=== PATIENT | female | born 1975 | race Two or more races ===

== ENCOUNTER → 2017-11-15 | Outpatient (CLI) | payer OTHER ==
--- NOTE | 2017-11-15 17:21 | WOMENS IMAGING REPORT ---
EXAM DESCRIPTION: BILAT SCREENING MAMMO W/CAD COMPLETED DATE/TIME: 11/15/2017 4:09 pm REASON FOR STUDY: ROUTINE SCREENING;Z12.31 Z12.31 ENCNTR SCREEN MAMMOGRAM FOR MALIGNANT NEOPLASM OF MISBAH COMPARISON: Multiple since 2009 TECHNIQUE: Standard craniocaudal and mediolateral oblique views of each breast recorded using digita l acquisition. Additional "push-back" craniocaudal and mediolateral oblique images acquired. LIMITATIONS: None. FINDINGS: IMPLANTS: Bilateral subpectoral implants. RIGHT BREAST MASSES: No suspicious masses. CALCIFICATIONS: In the right breast, retroareolar region, 3 cm from the nipple there are calcificatio ns which require further investigation with compression magnification views in the CC and MLO orienta tions, implant displaced right breast 90 mediolateral view. ARCHITECTURAL DISTORTION: None. DEVELOPING DENSITY: None. ASYMMETRY: None noted. OTHER: No other significant findings. LEFT BREAST MASSES: No suspicious masses. CALCIFICATIONS: No new or suspicious calcifications. ARCHITECTURAL DISTORTION: None. DEVELOPING DENSITY: None. ASYMMETRY: None noted. OTHER: No other significant findings. Read with the assistance of CAD. .[facility] - R2 Cenova Version 1.3 .[facility] Imaging - R2 Cenova Version 1.3 .[facility] Imaging - R2 Cenova Version 2.4 .[facility] - R2 Cenova Version 2.4 .[facility] - R2 Lamp Replacer Version 9.2 IMPRESSION: Calcifications right breast which require further evaluation with diagnostic compression magnification mammograms No mammographic evidence for malignancy left breast BREAST DENSITY: b. There are scattered areas of fibroglandular density. BIRAD: 0 Incomplete: Needs Additional Imaging Evaluation and/or prior Mammograms for Comparison. RECOMMENDATION: RECOMMENDED FOLLOW-UP: Compression magnification views right breast The patient will be contacted for additional imaging. COMMENT: The patient has been notified of the results by letter per SA requirements. Additional no tification policies are in place for contacting patient with suspicious or incomplete findings. Quality ID #[id number]: The [employer] recommends an annual screening mammogram for women aged 40 years or over. This facility utilizes a reminder system to ensure that all patients receive reminder letters, and/or direct phone calls for appointments. This includes reminders for routine scr eening mammograms, diagnostic mammograms, or other Breast Imaging Interventions when appropriate. Th is patient will be placed in the appropriate reminder system. The [employer] (ACR) has developed recommendations for screening MRI of the breast s in certain patient populations, to be used in conjunction with mammography. Breast MRI surveillanc e may be appropriate for women with more than 20% lifetime risk of developing breast cancer as deter mined by genetic testing, significant family history of the disease, or history of mantle radiation f or Hodgkins Disease. ACR Practice Guidelines 2008. TECHNICAL DOCUMENTATION: FINDING NUMBER: (1) ASSESSMENT: (1) JOB ID: [id number] [employer]- All Rights Reserved
== END ==
LOC: WI 15:07
PROVIDERS: ATTEND Family Medicine
DX: Z12.31 Encounter for screening mammogram for malignant neoplasm of breast (principal); R92.0 Mammographic microcalcification found on diagnostic imaging of breast; Z98.82 Breast implant status
CPT/HCPCS: 77067

== ENCOUNTER → 2017-11-22 | Outpatient (CLI) | payer OTHER ==
--- NOTE | 2017-11-23 08:41 | WOMENS IMAGING REPORT ---
EXAM DESCRIPTION: RIGHT DIAGNOSTIC MAMMO W/CAD COMPLETED DATE/TIME: 11/22/2017 12:53 pm REASON FOR STUDY: CALCIFICATIONS R92.0 R92.2 INCONCLUSIVE MAMMOGRAM COMPARISON: Multiple since 2009 TECHNIQUE: Implant displaced right breast 90 mediolateral and craniocaudad views, implant displaced compression magnification views of the right breast LIMITATIONS: None. FINDINGS: BREAST: Right MASSES: No suspicious masses. CALCIFICATIONS: In the right breast medially retroareolar region about 2.5 cm from the nipple, a grou p of calcifications is present which is variable in size shape and density. These are indeterminate for malignancy. Stereotactic biopsy is recommended for followup. ARCHITECTURAL DISTORTION: None. DEVELOPING DENSITY: None. ASYMMETRY: None noted. OTHER: No other significant findings. Read with the assistance of CAD. .[facility] - R2 Cenova Version 1.3 .[facility] Imaging - R2 Cenova Version 1.3 .[facility] Imaging - R2 Cenova Version 2.4 .[facility] - R2 Cenova Version 2.4 .[facility] - R2 [employer] Version 9.2 IMPRESSION: Right breast microcalcifications, indeterminate for malignancy. Stereotactic biopsy is recommended, with post biopsy clip placement and follow-up immediate two-view mammogram BREAST DENSITY: b. There are scattered areas of fibroglandular density. BIRAD: 4 Suspicious. Biopsy should be considered. RECOMMENDATION: RECOMMENDED FOLLOW UP: Right breast stereotactic biopsy SPECIFIC INTERVENTION/IMAGING/CONSULTATION RECOMMENDED:Right breast stereotactic biopsy, post biopsy clip placement and follow-up two-view mammogram COMMUNICATION:These findings were discussed with the patient at the time of service, she agrees to st ereotactic biopsy. Results were also called to Dr. Liao, 1400 hours, 11/22/2017 COMMENT: The patient has been notified of the results by letter per SA requirements. Additional no tification policies are in place for contacting patient with suspicious or incomplete findings. Quality ID #[id number]: The [employer] recommends an annual screening mammogram for women aged 40 years or over. This facility utilizes a reminder system to ensure that all patients receive reminder letters, and/or direct phone calls for appointments. This includes reminders for routine scr eening mammograms, diagnostic mammograms, or other Breast Imaging Interventions when appropriate. Th is patient will be placed in the appropriate reminder system. The [employer] (ACR) has developed recommendations for screening MRI of the breast s in certain patient populations, to be used in conjunction with mammography. Breast MRI surveillanc e may be appropriate for women with more than 20% lifetime risk of developing breast cancer as deter mined by genetic testing, significant family history of the disease, or history of mantle radiation f or Hodgkins Disease. ACR Practice Guidelines 2008. TECHNICAL DOCUMENTATION: FINDING NUMBER: (1) ASSESSMENT: (1) JOB ID: [id number] [employer]- All Rights Reserved
== END ==
LOC: WI 11:58
PROVIDERS: ATTEND Family Medicine
DX: R92.0 Mammographic microcalcification found on diagnostic imaging of breast (principal)

== ENCOUNTER → 2017-11-29 | Day surgery (SDC) | payer OTHER ==
[~2017-11-29] MED LIST: LIDOCAINE 1%/EPINEPHRINE INJ 20 ML VIAL ONE; LIDOCAINE 2% INJ (20 MG/ML) 20 ML MDV ONE
--- NOTE | 2017-12-01 17:01 | WOMENS IMAGING REPORT ---
EXAM DESCRIPTION: STEREO BREAST BX; RIGHT DIG DX MAMMO NO CHG; BREAST SPECIMEN COMPLETED DATE/TIME: 11/29/2017 11:24 am; 11/29/2017 11:25 am; 11/30/2017 9:20 am REASON FOR STUDY: R92.1 MAMMOGRAPHIC CALCIFCN FOUND ON DIAGNOSTIC IMAGING OF BREAST; POST RT BREAST STEREO; POST STEREO RT R92.1 MAMMOGRAPHIC CALCIFCN FOUND ON DIAGNOSTIC IMAGING OF B COMPARISON: None. TECHNIQUE: Vacuum-assisted stereotactic-guided biopsy of the lesion in the RIGHT breast. Serial prog ress stereotactic and single digital images acquired. PROCEDURE: The procedure was discussed with the patient, including possible complications such as bleeding, infection, nondiagnostic sample or possible findings such as atypical ductal hyperplasia wh ich would require additional surgery. Possible clip placement was explained. The patient agreed t o the procedure. The patient was placed prone on the stereotactic table. The lesion in the breast was localized ster eotactically. The skin of the breast was prepped in sterile fashion. Superficial and deep local an esthesia was provided. A small incision was made in the skin and the biopsy probe was advanced to t he target. Using the vacuum-assisted core biopsy device, multiple core specimens were obtained. Continuous low dose infusion of local anesthesia was used during the procedure. Patient developed a small hematom a during the procedure. This obscured visualization of the breast parenchymal calcifications. A specimen radiograph was obtained. The radiograph demonstrated possible calcifications in the biops y tissue. Using kyhvgujx-ak-edtjfjll technique a ribbon clip was deployed at the biopsy site. Mammographic image confirmed presence of the clip. The probe was then removed and hemostasis obtained with manua l compression. A compression bandage was applied. Postoperative instructions were explained to th e patient. POST-PROCEDURE TWO VIEW DIGITAL MAMMOGRAM: An additional two view mammogram was recorded in the [facility] mammographic suite. Marker clip is present at the biopsy site. LIMITATIONS: None. FINDINGS: PATHOLOGY: Benign breast tissue. Hematoma. No discernible calcifications. CONCORDANT: No. POST PROCEDURE MAMMOGRAMS FOR MARKER PLACEMENT: Yes IMPRESSION: UNSUCCESSFUL STEREOTACTIC-GUIDED BIOPSY OF THE LESION IN THE RIGHT BREAST. BIOPSY RESU LTS ARE DISCORDANT WITH IMAGING FINDINGS. Calcifications of concern were not identified in the specim en. These findings were discussed with the patient, 1700 hours 11/30/2017. She understands that we wi ll need to rebiopsy this lesion in 6 to 8 weeks. FOLLOW-UP: Rebiopsy in 6 to 8 weeks right breast for calcifications NOTIFICATION: Pathology results, need for rebiopsy was discussed with the patient, she understands th at we will need to rebiopsy 6 to 8 weeks. COMMENT: Patient medication list reviewed: Yes- Quality ID# [id number]:Eligible professional attests to doc umenting in the medical record they obtained, updated, or reviewed the patient's current medications. TECHNICAL DOCUMENTATION: JOB ID: [id number] [employer]- All Rights Reserved
--- NOTE | 2017-12-01 17:01 | WOMENS IMAGING REPORT ---
EXAM DESCRIPTION: STEREO BREAST BX; RIGHT DIG DX MAMMO NO CHG; BREAST SPECIMEN COMPLETED DATE/TIME: 11/29/2017 11:24 am; 11/29/2017 11:25 am; 11/30/2017 9:20 am REASON FOR STUDY: R92.1 MAMMOGRAPHIC CALCIFCN FOUND ON DIAGNOSTIC IMAGING OF BREAST; POST RT BREAST STEREO; POST STEREO RT R92.1 MAMMOGRAPHIC CALCIFCN FOUND ON DIAGNOSTIC IMAGING OF B COMPARISON: None. TECHNIQUE: Vacuum-assisted stereotactic-guided biopsy of the lesion in the RIGHT breast. Serial prog ress stereotactic and single digital images acquired. PROCEDURE: The procedure was discussed with the patient, including possible complications such as bleeding, infection, nondiagnostic sample or possible findings such as atypical ductal hyperplasia wh ich would require additional surgery. Possible clip placement was explained. The patient agreed t o the procedure. The patient was placed prone on the stereotactic table. The lesion in the breast was localized ster eotactically. The skin of the breast was prepped in sterile fashion. Superficial and deep local an esthesia was provided. A small incision was made in the skin and the biopsy probe was advanced to t he target. Using the vacuum-assisted core biopsy device, multiple core specimens were obtained. Continuous low dose infusion of local anesthesia was used during the procedure. Patient developed a small hematom a during the procedure. This obscured visualization of the breast parenchymal calcifications. A specimen radiograph was obtained. The radiograph demonstrated possible calcifications in the biops y tissue. Using swerkpzx-tl-mxfampha technique a ribbon clip was deployed at the biopsy site. Mammographic image confirmed presence of the clip. The probe was then removed and hemostasis obtained with manua l compression. A compression bandage was applied. Postoperative instructions were explained to th e patient. POST-PROCEDURE TWO VIEW DIGITAL MAMMOGRAM: An additional two view mammogram was recorded in the [facility] mammographic suite. Marker clip is present at the biopsy site. LIMITATIONS: None. FINDINGS: PATHOLOGY: Benign breast tissue. Hematoma. No discernible calcifications. CONCORDANT: No. POST PROCEDURE MAMMOGRAMS FOR MARKER PLACEMENT: Yes IMPRESSION: UNSUCCESSFUL STEREOTACTIC-GUIDED BIOPSY OF THE LESION IN THE RIGHT BREAST. BIOPSY RESU LTS ARE DISCORDANT WITH IMAGING FINDINGS. Calcifications of concern were not identified in the specim en. These findings were discussed with the patient, 1700 hours 11/30/2017. She understands that we wi ll need to rebiopsy this lesion in 6 to 8 weeks. FOLLOW-UP: Rebiopsy in 6 to 8 weeks right breast for calcifications NOTIFICATION: Pathology results, need for rebiopsy was discussed with the patient, she understands th at we will need to rebiopsy 6 to 8 weeks. COMMENT: Patient medication list reviewed: Yes- Quality ID# [id number]:Eligible professional attests to doc umenting in the medical record they obtained, updated, or reviewed the patient's current medications. TECHNICAL DOCUMENTATION: JOB ID: [id number] [email or web address]- All Rights Reserved
== END ==
LOC: RAD 08:22
PROVIDERS: ATTEND Family Medicine
PROC: 0HBT3ZX Excision of Right Breast, Percutaneous Approach, Diagnostic (ICD-10-PCS; principal; 2017-11-29)
DX: N61.1 Abscess of the breast and nipple (principal)
CPT/HCPCS: 88305 ×2; 88342; 19081; J3490; 76098

== ENCOUNTER → 2017-12-01 | Outpatient (CLI) | payer OTHER | LOC: LAB 15:56 | PROVIDERS: ATTEND Nuclear Medicine | DX: N61.1 Abscess of the breast and nipple (principal) | CPT/HCPCS: 87070; 87075; 87205 ==

== ENCOUNTER → 2017-12-01 | Day surgery (SDC) | payer OTHER ==
--- NOTE | 2017-12-01 16:25 | RADIOLOGY REPORT (SQ) ---
EXAM DESCRIPTION: U/S FINE NEEDLE ASPIRATION COMPLETED DATE/TIME: 12/01/2017 3:50 pm REASON FOR STUDY: RT BREAST ABSCESS hematoma COMPARISON: 11/29/2017 stereotactic biopsy right breast LIMITATIONS: none PROCEDURE: Patient presents today with right breast superficial skin erythema around the percutaneou s access site for stereotactic biopsy. Area of erythema measures about 10 cm in diameter. Patient h as no fever, but did have some night sweats last night. Clinical concern for hematoma with early inf ection. Right breast hematoma aspiration under ultrasound guidance was discussed with the patient, she agreed to the procedure. The area of concern in the right breast was localized with ultrasound. A hypoechoic hematoma measuri ng about 3 x 1 cm was identified in the medial right breast, from about the 0300 hours position. Using appropriate sterile technique and lidocaine as local anesthesia, the targeted hematoma was aspi rated using direct ultrasound visualization. Approximately 15 ml of bloody fluid was aspirated. The aspirated fluid was sent to the lab for Gram stain culture and sensitivity. After the initial aspiration, the cavity was irrigated with sterile saline, and another 5 mL of blood clot was aspirated. The patient tolerated the procedure without immediate complications. Patient was placed on Bactrim DS 1 tablet p.o. b.i.d. for 10 days. She will be re- evaluated tomorro w morning. IMPRESSION: SUCCESSFUL HEMATOMA ASPIRATION IN THE RIGHT BREAST. ASPIRATED FLUID SENT FOR GRAM STAIN CULTURE AND SENSITIVITY. SHE WILL BE RE-EVALUATED CLINICALLY TOMORROW MORNING. PATIENT WAS PLACED ON ORAL ANTIBIOTICS ABOVE. COMMENT: Patient medication list reviewed:Yes- Quality ID# [id number]:Eligible professional attests to docu menting in the medical record they obtained, updated, or reviewed the patient's current medications. PATIENT IS ALLERGIC TO NEOMYCIN TECHNICAL DOCUMENTATION: JOB ID: [id number] [employer] [facility]- All Rights Reserved
== END ==
LOC: RAD 14:41
PROVIDERS: ATTEND Nuclear Medicine
DX: N61.1 Abscess of the breast and nipple (principal)
CPT/HCPCS: 10022

== ENCOUNTER → 2018-02-07 | Day surgery (SDC) | payer OTHER ==
[~2018-02-07] MED LIST changes: -LIDOCAINE 2% INJ (20 MG/ML) 20 ML MDV ONE
--- NOTE | 2018-02-14 16:44 | RADIOLOGY REPORT (SQ) ---
EXAM DESCRIPTION: STEREO BREAST BX; BREAST SPECIMEN; RIGHT DIG DX MAMMO NO CHG COMPLETED DATE/TIME: 02/07/2018 9:39 am; 02/08/2018 9:43 am; 02/07/2018 9:15 am REASON FOR STUDY: MICROCALCS (R92.1); RT BREAST; RT BREAST CLIP PLACEMENT R92.0 MAMMOGRAPHIC MICROC ALCIFICATION FOUND ON DX IMAGING OF COMPARISON: Multiple previous mammograms from 2018 TECHNIQUE: Vacuum-assisted stereotactic-guided biopsy of the lesion in the right breast. Serial prog ress stereotactic and single digital images acquired. PROCEDURE: The procedure was discussed with the patient, including possible complications such as bleeding, infection, nondiagnostic sample or possible findings such as atypical ductal hyperplasia wh ich would require additional surgery. Possible clip placement was explained. The patient agreed t o the procedure. The patient was placed prone on the stereotactic table. The lesion in the breast was localized ster eotactically. The skin of the breast was prepped in sterile fashion. Superficial and deep local an esthesia was provided. A small incision was made in the skin and the biopsy probe was advanced to t he target. Using the vacuum-assisted core biopsy device, multiple core specimens were obtained. Continuous low dose infusion of local anesthesia was used during the procedure. A specimen radiograph was obtained. The radiograph demonstrated calcifications of concern in the bio psy tissue. Using ismgxefz-dm-yotfnacn technique a pellet clip was deployed at the biopsy site. Mammographic image confirmed presence of the clip. The probe was then removed and hemostasis obtained with manua l compression. A compression bandage was applied. Postoperative instructions were explained to th e patient. POST-PROCEDURE TWO VIEW DIGITAL MAMMOGRAM: An additional two view mammogram was recorded in the [facility] mammographic suite. Previous Marker clip is present at the biopsy site. Pellet marker was like ly expressed from the breast during postprocedure compression LIMITATIONS: None. FINDINGS: PATHOLOGY: Benign breast parenchyma with microcalcifications, foreign body reaction compat ible with previous biopsy site CONCORDANT: Yes. POST PROCEDURE MAMMOGRAMS FOR MARKER PLACEMENT: Yes IMPRESSION: SUCCESSFUL STEREOTACTIC-GUIDED BIOPSY OF THE LESION IN THE RIGHT BREAST. BIOPSY RESULT S ARE CONCORDANT WITH IMAGING FINDINGS. Benign calcifications are noted. BI-RADS 2 benign findings FOLLOW-UP: Patient should resume bilateral screening in October 2018 NOTIFICATION: These results were discussed with the patient, 02/09/2018, 1500 hours. She understands that this is a benign diagnosis and that she can return to bilateral screening in October 2018 COMMENT: Patient medication list reviewed: Yes- Quality ID# [id number]:Eligible professional attests to doc umenting in the medical record they obtained, updated, or reviewed the patient's current medications. TECHNICAL DOCUMENTATION: JOB ID: [id number] [employer]- All Rights Reserved Reading location - IP/workstation name: [email or web address]
== END ==
LOC: RAD 07:39
PROVIDERS: ATTEND Family Medicine
PROC: 0HBT3ZX Excision of Right Breast, Percutaneous Approach, Diagnostic (ICD-10-PCS; principal; 2018-02-07)
DX: N60.91 Unspecified benign mammary dysplasia of right breast (principal); N60.31 Fibrosclerosis of right breast; N60.41 Mammary duct ectasia of right breast; R92.0 Mammographic microcalcification found on diagnostic imaging of breast; R92.1 Mammographic calcification found on diagnostic imaging of breast
CPT/HCPCS: 88342 ×2; 88305 ×2; 19081; J3490

== ENCOUNTER → 2019-01-26 | Outpatient (CLI) | payer OTHER ==
--- NOTE | 2019-01-26 17:02 | WOMENS IMAGING REPORT ---
EXAM DESCRIPTION: BILAT SCREENING MAMMO W/CAD COMPLETED DATE/TIME: 01/26/2019 2:49 pm REASON FOR STUDY: Z12.31 ENCOUNTER FOR SCREENING MAMMOGRAM FOR MALIGNANT NEOPLASM OF BREAST Z12.31 ENCNTR SCREEN MAMMOGRAM FOR MALIGNANT NEOPLASM OF MISBAH COMPARISON: Multiple since 2009 TECHNIQUE: Standard craniocaudal and mediolateral oblique views of each breast recorded using digita l acquisition. Additional "push-back" craniocaudal and mediolateral oblique images acquired. LIMITATIONS: None. FINDINGS: IMPLANTS: Bilateral subpectoral implants. Findings present which are benign by mammographic criteria. No suspicious masses, calcifications or architectural distortion. Read with the assistance of CAD. .[facility] - R2 Cenova Version 1.3 .[facility] Imaging - R2 Cenova Version 2.1 .[facility] Imaging - R2 Cenova Version 2.4 .[facility] - R2 Cenova Version 2.4 .[facility] - R2 [employer]er Version 9.2 Benign mammographic findings may include one or more of the following: Smooth masses, popcorn/rim/co arse calcifications, asymmetries, post-procedure changes, and lesions with long-standing stability. IMPRESSION: BENIGN MAMMOGRAPHIC FINDINGS. BIRADS 2 BREAST DENSITY: b. There are scattered areas of fibroglandular density. BIRAD: 2 BENIGN FINDING(S) RECOMMENDATION: ROUTINE SCREENING COMMENT: The patient has been notified of the results by letter per SA requirements. Additional no tification policies are in place for contacting patient with suspicious or incomplete findings. Quality ID #225: The [employer] recommends an annual screening mammogram for women aged 40 years or over. This facility utilizes a reminder system to ensure that all patients receive reminder letters, and/or direct phone calls for appointments. This includes reminders for routine scr eening mammograms, diagnostic mammograms, or other Breast Imaging Interventions when appropriate. Th is patient will be placed in the appropriate reminder system. The [employer] (ACR) has developed recommendations for screening MRI of the breast s in certain patient populations, to be used in conjunction with mammography. Breast MRI surveillanc e may be appropriate for women with more than 20% lifetime risk of developing breast cancer as deter mined by genetic testing, significant family history of the disease, or history of mantle radiation f or Hodgkins Disease. ACR Practice Guidelines 2008. TECHNICAL DOCUMENTATION: FINDING NUMBER: (1) ASSESSMENT: (1) JOB ID: [id number] [employer]- All Rights Reserved Reading location - IP/workstation name: [email or web address]
== END ==
LOC: WI 14:27
PROVIDERS: ATTEND Family Medicine
DX: Z12.31 Encounter for screening mammogram for malignant neoplasm of breast (principal)
CPT/HCPCS: 77067

== ENCOUNTER → 2020-04-02 | Outpatient (CLI) | payer OTHER ==
--- NOTE | 2020-04-02 13:15 | WOMENS IMAGING REPORT ---
EXAM DESCRIPTION: BILAT SCREENING MAMMO W/CAD IMAGES COMPLETED DATE/TIME: 04/02/2020 9:24 am REASON FOR STUDY: Z12.31 SCREENING MAMMO Z12.31 ENCNTR SCREEN MAMMOGRAM FOR MALIGNANT NEOPLASM OF B RE COMPARISON: Multiple since 2009 EXAM PARAMETERS: Standard craniocaudal and mediolateral oblique views of each breast recorded using digital acquisition. Additional "push-back" craniocaudal and mediolateral oblique images acquired. Read with the assistance of CAD. .[facility] - [employer] Strategist Version 9.2 LIMITATIONS: None. FINDINGS: IMPLANTS: Bilateral subpectoral implants. Findings present which are benign by mammographic criteria. No suspicious masses, calcifications or architectural distortion. Old biopsy clip right breast retroareolar region Benign mammographic findings may include one or more of the following: Smooth masses, popcorn/rim/co arse calcifications, asymmetries, post-procedure changes, and lesions with long-standing stability. IMPRESSION: BENIGN MAMMOGRAPHIC FINDINGS. BIRADS 2 BREAST DENSITY: b. There are scattered areas of fibroglandular density. BIRAD: ASSESSMENT: 2 BENIGN FINDING(S) RECOMMENDATION: ROUTINE SCREENING COMMENT: The patient has been notified of the results by letter per MQSA requirements. Additional no tification policies are in place for contacting patient with suspicious or incomplete findings. Quality ID #225: The [employer] recommends an annual screening mammogram for women aged 40 years or over. This facility utilizes a reminder system to ensure that all patients receive reminder letters, and/or direct phone calls for appointments. This includes reminders for routine scr eening mammograms, diagnostic mammograms, or other Breast Imaging Interventions when appropriate. Th is patient will be placed in the appropriate reminder system. TECHNICAL DOCUMENTATION: FINDING NUMBER: (1) ASSESSMENT: (1) JOB ID: [id number] [email or web address]- All Rights Reserved Reading location - IP/workstation name: [email or web address]
== END ==
LOC: WI 09:05
PROVIDERS: ATTEND Obstetrics & Gynecology
DX: Z12.31 Encounter for screening mammogram for malignant neoplasm of breast (principal); Z98.82 Breast implant status
CPT/HCPCS: 77067